=== PATIENT | male | born 1945 | race Caucasian/White ===

== ENCOUNTER → 2017-01-15 | Outpatient (CLI) | payer OTHER ==
[~2017-01-15] VITALS: Ht 172.7 cm; Wt 71.6 kg
[~2017-01-15] MED LIST: FLOMAX0.4 MG PO; GABAPENTIN 100100 MG PO
--- NOTE | ~2017-01-15 | HPC ---
[facility] [address] [place] [address] PAIN MANAGEMENT CONSULTATION Name: ADOLFO ARNOLD Room #: REG SUKI JoseLaviniaJasson#: [id number] Admission: 01/15/17 Attend Phys: Morris Molina DO Discharge: Date of : 41 Report #: [id number] THIS REPORT FOR: //name// CC: Jocelyn Molina HISTORY OF PRESENT ILLNESS: The patient is a very pleasant 72-year-old gentleman, seen in consultation at the request of Dr. Fagan for assistance with management of pain, left posterior occiput, shoulder, and neck. The patient uniquely developed acute onset of symptoms 4 weeks ago, concurrent with what appears to be partial vocal cord paralysis. The patient notes that some 15 years ago, he had some neck issues, more classic radicular type symptoms treated with, what sounds like, transforaminal epidural steroid injections. Nonetheless, those symptoms resolved and acute symptoms, which started 4 weeks ago occurred after the patient spent a good deal of time working over his head with his neck extended. He notes with acute onset of symptoms, he has seen multiple physicians; followed up with Dr. Fagan and was seen by an ENT physician. Apparently, he had what sounds like a Z-JAYA, Medrol Dosepak, and prednisone steroid 20 mg with some transient improvement. Has taken little bit of hydrocodone and gabapentin 100 mg b.i.d. He notes a lot of medication does produce some unwanted sedation. He describes constant, throbbing, and sharp pain, rates anywhere from 7-10 on a 0-10 visual analog scale, gets a little bit of relief, when he is recumbent. REVIEW OF SYSTEMS: Complete review of systems was attached to the chart and gone over with the patient. He is , seen in the company of his and daughter who are supportive. Enjoyed reasonably good health. He does not smoke or drink alcohol to excess. He has benign prostatic hypertrophy for which he takes Flomax and really no other medications. 40 years ago, he had lumbar radicular symptoms treated with a laminectomy which resolved all symptoms, and he has had no sequelae. 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 He relocated to [place] to be near to his daughter and grandchildren. Pain impact score averages fairly high about 8.2 for all indices queried, not affecting walking ability or sleep. PHYSICAL EXAMINATION: GENERAL: Reveals a 5 feet 8 inches, 152 pound gentleman (down from 165 pounds with acute symptoms and difficulty with swallowing) yielding a BMI of 24 kilograms per meter squared. Blood pressure was 131/86, pulse was 93, respirations are 14. NEUROLOGICAL: Cranial nerves 2-12 are grossly intact. HEENT: Extraocular muscles are intact. There is no nystagmus with lateral gaze deviation. NECK: Cervical range of motion exacerbates some pain with extension. It is [address] [address] PAIN MANAGEMENT CONSULTATION Name: ADOLFO ARNOLD Room #: REG SUKI Graham#: [id number] Admission: 01/15/17 Attend Phys: Morris Molina DO Discharge: Date of : 41 Report #: [id number] tender over the left superior cervical facets tender over the greater occipital area. Upper extremity strength is preserved. Deep tendon reflexes with biceps, triceps, and brachioradialis were symmetric. Hand grasp is good. There are no carotid bruits auscultated. Thyroid is unremarkable. He is hoarse and cannot provide sufficient glottic closure to produce a productive cough. LUNGS: However, are clear at this time. He is quite hoarse. HEART: Regular and rhythmical without murmur. ABDOMEN: Unremarkable. NEUROLOGICAL: Gait is tandem. I do not appreciate any cervical adenopathy. Lower extremity strength is symmetric. DIAGNOSTIC DATA: CT scan of the soft tissues in the neck with contrast obtained on 01/08/2017 note no discrete masses, involving the base of the tongue or oropharynx. Subglottic airway is normal. Parotid and submandibular glands are normal. No cervical or supraclavicular adenopathy is noted. There is some thoracic and cervical spondylosis noted. Chest x-ray notes no acute pulmonary processes. MRI of the brain with and without contrast shows no evidence of acute infarct. There is some fluid in the right mastoid air cells. Nonspecific white matter signals consistent with small vessel ischemic disease. ASSESSMENT: Symptomatic left C2-C3 cervical spondylosis with third occipital nerve distribution pain, covering posterior occiput (greater and lesser occipital nerves) and left neck and shoulder cap. As for the unilateral vocal cord paralysis, this appears to be in the distribution of the pharyngeal branch of the vagus nerve, (superior laryngeal nerve on the left), I am concerned that there may be process compromising the vagus nerve, at least pharyngeal and superior laryngeal nerves, which is concerning, but I can find no evidence from the diagnostic studies. Today, we did discuss treatment at length. From a symptomatic standpoint, I recommend the patient use a proton pump inhibitor to decrease pH of the gastric secretions and suggest patient to elevate the head of the bed to avoid passive aspiration. We talked about dietary concerns as initially discussed with his ENT physician, limiting his p.o. take to viscous solutions to help avoid aspiration. May be a viral component that at 4 weeks out, I do not think antiviral medications would be efficacious. We have elected to proceed with a left C2-C3 cervical facet joint injection to help with pain component in the posterior occiput, left neck and shoulder. Follow up in 3 weeks to reevaluate. I recommend continuing follow up with ENT. Given the gabapentin 100 mg b.i.d. is causing some daytime sedation, I suggest rotating medication distribution to 2 tablets at bedtime. Thank you for allowing me to participate in the patient's care. He does present with somewhat of a diagnostic dilemma. I am not entirely certain of the etiology of his constellation of symptoms, but it does appear that the pain [facility] [address] [place] [address] PAIN MANAGEMENT CONSULTATION Name: ADOLFO ARNOLD Room #: REG CL Aleksander.#: [id number] Admission: 01/15/17 Attend Phys: Morris Molina DO Discharge: Date of : 41 Report #: [id number] component is coming from the C2-C3 cervical facet, certainly easily attributable to working over head with neck and cervical extension for some time. Given temporal relationship of acute onset of vocal cord paralysis, it appears to be related, but I am hard pressed to find a definitive reason for the latter symptoms. Thank you for allowing me to participate in the patient's care. I will keep you abreast of his progress. PROCEDURE: Left C2-C3 cervical facet joint injection under fluoroscopy. DESCRIPTION OF PROCEDURE: After written informed consent was obtained, the patient was taken to fluoroscopy suite, placed in the prone position. After sterile prep and drape, skin wheal was raised. A 25-gauge stylet needle was placed to contact the inferior aspect of the C2-C3 facet in the middle of the lateral mass on the left side. AP and lateral projections showed good needle placement of the posterior aspect of the C2-C3 facet, negative aspiration was accomplished. 4 mg of Decadron plus 1 mL of 0.5% preservative-free bupivacaine was injected into and around the joint. Needle was removed. The area was cleansed. Band-Aids were applied. The patient was monitored for an appropriate period of time, discharged in good and stable condition. <ELECTRONICALLY SIGNED> By: Morris Molina DO 01/16/17 [id number] Morris Molina DO /nt
[2017-01-15 09:56] VITALS: BP 131/86
== END | disposition home or self-care (01) ==
LOC: PAIN 08:07
DX: M47.812 Spondylosis without myelopathy or radiculopathy, cervical region (principal); J38.01 Paralysis of vocal cords and larynx, unilateral